=== PATIENT | female | born 1975 | race Two or more races ===

== ENCOUNTER 2018-10-21 06:20 | Day surgery (SDC) | payer OTHER ==
[~2018-10-21] VITALS: Ht 162.6 cm; Wt 76.7 kg
[2018-10-21 06:35] VITALS: BP 164/94
[2018-10-21 11:30] VITALS: BP 129/85
== END 2018-10-21 10:10 | disposition home or self-care (01) ==
LOC: DS 06:20 → OR 07:30 → DS 10:10
DX: N92.1 Excessive and frequent menstruation with irregular cycle (principal); G43.909 Migraine, unspecified, not intractable, without status migrainosus; L93.0 Discoid lupus erythematosus; I10 Essential (primary) hypertension; K21.9 Gastro-esophageal reflux disease without esophagitis; F41.9 Anxiety disorder, unspecified; R73.03 Prediabetes; Z79.899 Other long term (current) drug therapy; Z87.59 Personal history of other complications of pregnancy, childbirth and the puerperium; Z98.51 Tubal ligation status
CPT/HCPCS: C1758; J2250; J2405; J2704; J3010; J7120